=== PATIENT | female | born 1985 | race Two or more races ===

== ENCOUNTER 2024-06-12 18:31 | Emergency (ER) | payer OTHER ==
[~2024-06-12] VITALS: Ht 160 cm; Wt 77.2 kg
--- NOTE | 2024-06-12 19:39 | ED.PDOC ---
History of Present Illness HPI Comments 39-year-old female, with a history of childhood asthma and obesity, presents with complaint of shortness of breath, cough, and wheezing for the past 2 months, today. Patient endorses onset of symptoms following, recently, recovering from previous cold she had 2 months ago. She denies having any chest pain, hemoptysis, fever, chills, or other associated symptoms or modifiers at this time. Chief Complaint: Shortness of Breath Time Seen by MD: 19:30 Reviewed Notes: Nurses Notes, Medications, Allergies Allergies: Uncoded Allergies: PETS (Allergy, Unknown, 06/12/24) Information Source: Patient Mode of Arrival: Ambulatory Severity: Moderate Timing: Months Duration: Since onset Prehospital treatment: None Past Medical History PAST MEDICAL HISTORY: Asthma (Childhood) Past Medical History (Other): Obesity Surgical History: Denies all surgeries PERSONNEL COUNSELOR History: Denies all PERSONNEL COUNSELOR Hx Family History Family History: Unknown Social History Smoker: Non-Smoker Alcohol: Denies ETOH Use Drugs: Denies Drug Use Lives In: Home Respiratory: reports: cough, shortness of breath, wheezing All Other Systems: Reviewed and Negative (Negative unless otherwise stated above in HPI) Physical Exam General Appearance: No Apparent Distress, Obese HEENT: Normal ENT Inspection, Pharynx Normal, TMs Normal Neck: Full Range of Motion, Non-Tender, Normal, Normal Inspection Respiratory: Chest Non-Tender, No Accessory Muscle Use, No Respiratory Distress, Wheezing (Bilateral upper lung zacarias) Cardiovascular: No Edema, No JVD, No Murmur, No Gallop, Normal Peripheral Pulses, Regular Rate/Rhythm Breast Exam: Deferred Gastrointestinal: No Organomegaly, Non Tender, No Pulsatile Mass, Normal Bowel Sounds, Soft Genitalia: Deferred Pelvic: Deferred Rectal: Deferred Extremities: No calf tenderness, Normal capillary refill, Normal inspection, Normal range of motion, Non-tender, No pedal edema Musculoskeletal : Apperance: Normal 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 Was a procedure done?: No Differential Dx Considerations may include: Viral syndrome, URI, pneumonia, TX, ACS X-Ray, Labs, Meds, VS Vital Signs Date Time Temp Pulse Resp B/P (MAP) Pulse Ox O2 Delivery O2 Flow Rate FiO2 06/12/24 19:30 22 95 Room Air* 0 21 06/12/24 19:28 115 06/12/24 19:16 98.6 125 22 156/106 (123) 95 X-Ray, Labs, Meds, VS Comment IMAGING: X-RAYS AND CT SCANS WERE REVIEWED AND INTERPRETED BY THIS PROVIDER, IMAGING SHOWS NO FRACTURES AND NO PATHOLOGICAL DISEASE. PENDING RADIOLOGY REVIEW. LABORATORY: LABS REVIEWED AND INTERPRETED BY THIS PROVIDER. NO SIGNIFICANT ABNORMALITIES NOTED. PATIENT HAS PRIOR MEDICAL VISITS REVIEWED. MED RECONCILIATION PERFORMED VITAL SIGNS REVIEWED Time of 1ST Reevaluation: 20:00 Reevaluation 1ST: Unchanged Patient Education/Counseling: Diagnosis, Treatment, Need For Follow Up (PATIENT ADVISED TO FOLLOW-UP IN THE EMERGENCY ROOM IN THE NEXT 24 TO 48 HOURS IF SYMPTOMS DO NOT IMPROVE. ADVISED FOLLOW-UP WITH PCP IN THE NEXT 3 TO 5 DAYS. PATIENT VERBALIZED UNDERSTANDING. ) Family Education/Counseling: No Family Present Departure 1 Departure Time of Disposition: 20:46 Impression: Primary Impression: Asthma exacerbation Qualified Codes: J45.21 - Mild intermittent asthma with (acute) exacerbation Disposition: 01 HOME / SELF CARE / HOMELESS Condition: Fair e-Prescriptions Montelukast Sodium (Singulair) 10 Mg Tab 10 MG PO DAILY for 30 Days, #30 TAB Prov: ANNALISA HUDSON 06/12/24 Albuterol Sulfate (Albuterol Sulfate Hfa) 108 Mcg/Act Aer 108 MCG IN TID PRN, #1 AER Prov: ANNALISA HUDSON 06/12/24 Prednisone (Prednisone) 20 Mg Tab 40 MG PO DAILY for 5 Days, #10 MG Prov: ANNALISA HUDSON 06/12/24 Discharged With: Self Critical Care Note Critical Care Time?: No Stability Stability form required: No Heart Score Heart Score: Heart Score Response (Comments) Value History N/A 0 EKG N/A 0 Age N/A 0 Risk Factors N/A 0 Troponin N/A 0 Total 0 I personally scribed for ANNALISA HUDSON ([email or web address]) on 06/12/24 at 19:39. Electronically submitted by Herminio Lee ([email or web address]). ANNALISA HUDSON Jun 12, 2024 19:39
--- NOTE | 2024-06-12 20:13 | DVH ---
CHEST RADIOGRAPH Indication: SOB Technique: Single frontal view of the chest was obtained COMPARISON: None FINDINGS: Lines and Tubes: None Lungs: Clear Pleura: No effusion. No pneumothorax. Cardiomediastinal contours: Unremarkable Bones: Unremarkable IMPRESSION: No acute disease.
[2024-06-12] MEDS ORDERED: PRED20TA2 PO (20:49)
[2024-06-12] MEDS ORDERED: ALBU108A5 IN (20:49)
[2024-06-12] MEDS ORDERED: MONT10TA23 PO (20:49)
[2024-06-12] MEDS: methylPREDNISolone SOD SUCC 125 MG/2 ML VL IM ONE (22:01)
[2024-06-12] MEDS: IPRATROPIUM BROM 0.5 MG/2.5ML INH SOL NEB ONE (22:02)
[2024-06-12] MEDS: ALBUTEROL SULF 2.5 MG/0.5ML(0.5%) NEB SOLN NEB ONE (22:03)
[2024-06-12 22:06] VITALS: BP 156/88; PULSE 125; RESP 24; TEMP 98.6; O2SAT 96
--- NOTE | 2024-06-13 10:37 | ECG ---
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
== END 2024-06-12 23:17 | disposition home or self-care (01) ==
LOC: ER 18:31
DX: J45.901 Unspecified asthma with (acute) exacerbation (principal); E66.9 Obesity, unspecified; R05.9 Cough, unspecified
CPT/HCPCS: 71045; 93005; 94640; 96372; 99283; J2919